=== PATIENT | female | born 1975 | race Caucasian/White ===

== ENCOUNTER 2018-07-20 00:20 | Outpatient (CLI) | payer OTHER, SELFPAY ==
--- NOTE | 2018-07-20 15:14 | DI.MAMMO_ITS ---
SYMPTOM/DIAGNOSIS: BREAST CA SCREENING, Z12.31 MAMMOGRAM: 07/20 Mammograms were interpreted according to the usual protocol including computer analysis with CAD system, tomosynthesis and C view imaging. The breasts are of moderate density with fairly symmetrical distribution of fibroglandular tissue. No dominant mass or lumped microcalcification is identified in either breast. The current examination is compared with previous examinations including 06/2016 and there has been no gross interval change in appearance in comparison with the previous studies. CONCLUSION: No specific evidence of malignancy at this time. Routine screening examinations are suggested at yearly intervals in this age group according to the ACS/ACR guidelines. Category 1, breast density category B. MQSA ASSESSMENT OF FINDINGS: Negative. Category 1. Patient will receive a letter notifying them of these results. BI-RADS category B. There are scattered areas of fibroglandular density.
== END 2018-07-20 00:40 ==
PROVIDERS: PCP Nurse Practitioner; Visit Provider Nurse Practitioner
DX: Z12.31 Encounter for screening mammogram for malignant neoplasm of breast (principal)
CPT/HCPCS: 77063; 77067

== ENCOUNTER 2018-09-01 18:32 | Outpatient (REF) | payer OTHER, SELFPAY ==
[2018-09-03 14:04] LABS: Chlamydia Result Negative; GC Result Negative; Specimen Description URINE
== END 2018-09-01 18:52 ==
LOC: NCHCN 18:32
PROVIDERS: PCP Nurse Practitioner; Visit Provider Nurse Practitioner
DX: R10.9 Unspecified abdominal pain (principal)
CPT/HCPCS: 87491; 87591; 87086

== ENCOUNTER 2018-09-11 07:52 | Outpatient (CLI) | payer OTHER, SELFPAY ==
[2018-09-11 08:31] LABS: Abs Immature Grans 0.01 k/cumm (0.0-0.09); Absolute Basophil Count 0.08 k/cumm (0.0-0.2); Absolute Lymphocyte Count 2.34 k/cumm (1.2-3.4); Absolute Monocyte Count 0.41 k/cumm (0.11-0.7); Absolute Neutrophil Count 4.53 k/cumm (1.2-6.7); Eosinophils % 6.4; HCT 43.7 % (36.0-46.0); HGB 14.1 g/dL (12.0-15.5); Immature Grans % 0.1; Lymphocytes % 29.7; Mean Corp. HGB Concentration 32.3 g/dL (32.0-36.0); Mean Corpuscular Hemoglobin 28.4 pg (27.0-33.0); Mean Corpuscular Volume 87.9 fL (80-95); Mean Platelet Volume 10.3 fL (8.0-11.0); Monocytes % 5.2; Neutrophils % 57.6; Platelet Count 262 x1000/uL (130-400); RBC 4.97 m/cumm (4.00-5.20); RBC Distribution Width 13.6 % (11.7-14.6); White Blood Cell Count 7.87 k/cumm (4.4-10.8)
[2018-09-11 09:05] LABS: ALT 24 U/L (12-78); AST 14 U/L (15-37); Albumin 3.3 g/dL (3.4-5.0); Alkaline Phosphatase 61 U/L (46-116); Anion Gap 7.6 mmol/L (3-11); BUN 21 mg/dL (7-18); Bilirubin, Total 0.4 mg/dL (0.2-1.0); CO2 29.4 mmol/L (21.0-32.0); CREATININE 1.03 mg/dL (0.55-1.02); Chloride 102 mmol/L (98-107); Cholesterol 171 mg/dL (50-200); Estimated GFR 58.21 (mL/min/1.73m2); Glucose 130 mg/dL (70-100); HDL Cholesterol 59 mg/dL (40-60); LDL CHOLESTEROL 104 mg/dL (<100); Potassium 3.9 mmol/L (3.5-5.1); Sodium 139 mmol/L (136-145); Total Protein 7.2 g/dL (6.4-8.2); Triglyceride 48 mg/dL (30-150)
== END 2018-09-11 08:12 ==
PROVIDERS: PCP Nurse Practitioner; Visit Provider Nurse Practitioner
DX: I10 Essential (primary) hypertension (principal); R10.9 Unspecified abdominal pain
CPT/HCPCS: 36415; 80053; 80061; 83721; 85025

== ENCOUNTER 2019-02-27 09:08 | Outpatient (CLI) | payer SELFPAY ==
[2019-02-27 10:39] LABS: Glucose 103 mg/dL (70-100)
== END 2019-02-27 09:28 ==
PROVIDERS: PCP Nurse Practitioner; Visit Provider Nurse Practitioner
DX: R73.09 Other abnormal glucose (principal)
CPT/HCPCS: 36415; 82947

== ENCOUNTER 2019-05-31 04:25 | Emergency (ER) | payer OTHER, SELFPAY ==
[2019-05-31 04:30] VITALS: BP 155/95; PULSE 80; RESP 20; TEMP 36.8; O2SAT 98
--- NOTE | 2019-05-31 04:42 | W.ED.GENAD ---
Discharge Plan Disposition Patient Disposition: HOME Condition: Stable Discharge Details Chief Complaint: Nk/Back Pain Clinical Impression: Lumbago Primary Care Provider: Rachel Vail ED Provider: Elmer Mari Home Meds and New Rx's Prescriptions: New prednisone 50 mg tablet 50 mg PO DAILY 5 Days Qty: 5 RF: 0 Continued lisinopril 10 mg tablet 5 mg PO DAILY Qty: 90 RF: 3 albuterol sulfate 90 mcg/actuation HFA aerosol inhaler 2 puff IH QID PRN (Reason: shortness of breath or wheezing) Qty: 1 RF: 0 multivitamin tablet 1 tab PO DAILY RF: 0 Discharge Instructions Instructions: Low Back Strain (ED) Additional Instructions: Please follow-up with physical therapy as planned and prescribed. Ibuprofen 800 mg every 8 hours and/or Tylenol 650 mg every 6 hours for pain. Apply ice to area to reduce discomfort. Please follow-up with physical therapy. Return for worsening pain, development of weakness, change to ability to urinate, or any other concerns per Stand Alone Forms: Physical Therapy Referral, Work Release Medical Decision Making 44-year-old female who was bent over changing hoses at work when she felt the abrupt onset of lumbar pain that radiated down her right leg. Pain improved with some positioning but has persisted. She did not injure herself in any other way. She arrives with mild hypertension, a normal exam without evidence of deficit. I do feel she likely has a bulging lumbar disc versus muscular strain. Will treat with Lidoderm patch, burst of steroid, NSAIDs and a referral to physical therapy. She is understanding of the plan and need for follow-up with physical therapy. She is stable for outpatient management. HPI General Mode of arrival: ambulatory. Date/Time Provider Initiated Documentation: 05/31/19 04:34. Limitations to Documentation: no limitations. Information obtained by: patient. History of Present Illness 44 year old F presents to the emergency department with the chief complaint of Low back pain, described as moderate, Quality is described as dull and constant, and is localized to the back. Patient extremity. Patient started experiencing this minute(s) and it has been other (Improving). No relieving factors improve symptom(s), Movement worsens symptoms . Patient notes no other symptoms.; denies weakness. Patient did receive the following treatments prior to arrival, none Related Data Home Medications Medication Instructions Recorded Confirmed albuterol sulfate 90 mcg/actuation 2 puff IH QID PRN #1 device 09/23/18 03/20/19 aerosol inhaler multivitamin 1 tab PO DAILY 03/19/19 05/31/19 lisinopril 10 mg tablet 5 mg PO DAILY #90 tab-cap 04/26/19 05/31/19 prednisone 50 mg PO DAILY 5 Days #5 tab 05/31/19 Previous Rx's Medication Instructions Recorded albuterol sulfate 90 mcg/actuation 2 puff IH QID PRN #1 device 09/23/18 aerosol inhaler lisinopril 10 mg tablet 5 mg PO DAILY #90 tab-cap 04/26/19 prednisone 50 mg PO DAILY 5 Days #5 tab 05/31/19 Allergies Allergy/AdvReac Type Severity Reaction Status Date / Time No Known Allergies Allergy Verified 05/31/19 04:33 General Stated Complaint: Nk/Back Pain NISHANT: 3 Review of Systems Review of Systems No change to ability to urinate, no motor weakness. No numbness. No fall or other injury. 6 systems reviewed and otherwise - [facility] Medical History Essential hypertension Gastroesophageal reflux disease Polycystic ovaries Surgical History Cholecystectomy Diagnostic Laproscopy Hysteroscopy Family History Mother No problems noted. Father No problems noted. Sister No problems noted. Sister No problems noted. Social History Smoking/Tobacco Use Status: Never Alcohol Intake: current Alcohol Intake frequency: holidays/special occasions only Drug use: Never Household members: other Details: alicia' Number of Children: 0 current occupation: [employer] What type of physical activity do you participate in: regular exercise and other Details: work-lifting, up and down stairs Duration: 60-90 minutes/day Frequency: 5-6 times per week Do you feel safe in your relationship?: Yes Exam Narrative Exam Narrative: GEN: awake, alert, oriented 3. Pleasant, well groomed, interactive. HEAD: Normocephalic, atraumatic ENT: Mucous membranes moist, oropharynx unremarkable, External ear exam unremarkable EYES: PERRL, EOMI NECK: Full ROM, no SERVANDO, no menigismus CHEST/RESP: Nontender, clear to auscultation bilateral, no wheeze/rhonchi/rales CARDIOVASCULAR: RRR, no murmur, rub paulina. 2+ Rad pulse bilateral ABDOMEN: Soft, nontender, no mass. +Bowel sounds. The back is tender to palpation in the lumbar region. No sciatic notch tenderness per EXT: Full ROM, no edema, no rash. Motor rated 5 out of 5. Sensation intact throughout including saddle distribution. Patient able to walk with narrow-base gait Neuro: Grossly normal neurologic exam, conversant, interactive. Psych: Speech fluent, thoughts congruent, affect normal Course Vital Signs Temperature 36.8 C 05/31/19 04:30 Pulse 80 05/31/19 04:30 Respiratory Rate 20 05/31/19 04:30 Blood Pressure 155/95 H 05/31/19 04:30 Pulse Oximetry 98 05/31/19 04:30 Temperature 36.8 C 05/31/19 04:30 Temperature Source Temporal Artery Scan 05/31/19 04:30 Pulse 80 05/31/19 04:30 Respiratory Rate 20 05/31/19 04:30 Respiratory Effort Non-Labored 05/31/19 04:30 Blood Pressure 155/95 H 05/31/19 04:30 Pulse Oximetry 98 05/31/19 04:30 Oxygen Delivery Method Room Air 05/31/19 04:30 Oxygen Flow Rate 0 05/31/19 04:30 Pain Level 10 05/31/19 04:30
[2019-05-31] MEDS: Ibuprofen 800 MG TAB PO (04:55)
[2019-05-31] MEDS: predniSONE 20 MG TAB 60 MG PO (04:56)
[2019-05-31] MEDS: Lidocaine 5% Patch 1 PATCH TP (04:56)
== END 2019-05-31 04:55 | disposition home or self-care (01) ==
PROVIDERS: Emergency Provider Emergency Medicine; PCP Nurse Practitioner
DX: M54.5 Low back pain (principal); I10 Essential (primary) hypertension
CPT/HCPCS: 99283; J7512

== ENCOUNTER 2019-06-03 10:10 | Outpatient (CLI) | payer OTHER, SELFPAY ==
[2019-06-03 11:22] LABS: Hemoglobin A1C 6.1 % (4.5-6.2)
[2019-06-03 12:07] LABS: ALT 42 U/L (12-78); AST 23 U/L (15-37); Albumin 3.5 g/dL (3.4-5.0); Alkaline Phosphatase 59 U/L (46-116); Anion Gap 9.3 mmol/L (3-11); BUN 25 mg/dL (7-18); Bilirubin, Total 0.2 mg/dL (0.2-1.0); CO2 25.7 mmol/L (21.0-32.0); CREATININE 1.02 mg/dL (0.55-1.02); Calcium 8.9 mg/dL (8.5-10.1); Calculated LDL 97 mg/dL; Chloride 103 mmol/L (98-107); Cholesterol 177 mg/dL (50-200); Glucose 190 mg/dL (70-100); HDL Cholesterol 74 mg/dL (40-60); Potassium 4.4 mmol/L (3.5-5.1); Sodium 138 mmol/L (136-145); Total Protein 7.4 g/dL (6.4-8.2); Triglyceride 32 mg/dL (30-150)
== END 2019-06-03 10:30 ==
PROVIDERS: PCP Nurse Practitioner; Visit Provider Nurse Practitioner
DX: I10 Essential (primary) hypertension (principal); R73.01 Impaired fasting glucose; R73.03 Prediabetes
CPT/HCPCS: 36415; 80053; 80061; 83721; 83036

== ENCOUNTER 2020-04-27 01:26 | Outpatient (CLI) | payer OTHER, SELFPAY ==
[2020-04-27 12:28] LABS: HCT 40.4 % (36.0-46.0); HGB 13.2 g/dL (12.0-15.5); Mean Corp. HGB Concentration 32.7 g/dL (32.0-36.0); Mean Corpuscular Hemoglobin 28.4 pg (27.0-33.0); Mean Corpuscular Volume 87.1 fL (80-95); Mean Platelet Volume 10.2 fL (8.0-11.0); Platelet Count 262 x1000/uL (130-400); RBC 4.64 m/cumm (4.00-5.20); RBC Distribution Width 13.6 % (11.7-14.6); White Blood Cell Count 8.07 k/cumm (4.4-10.8)
[2020-04-27 13:33] LABS: ALT 29 U/L (14-59); AST 16 U/L (15-37); Albumin 3.7 g/dL (3.4-5.0); Alkaline Phosphatase 65 U/L (46-116); Anion Gap 9.1 mmol/L (3-11); BUN 14 mg/dL (7-18); Bilirubin, Total 0.6 mg/dL (0.2-1.0); CO2 25.9 mmol/L (21.0-32.0); Calcium 9.2 mg/dL (8.5-10.1); Calculated LDL 130 mg/dL (<100); Chloride 106 mmol/L (98-107); Cholesterol 203 mg/dL (<200); Estimated GFR 59.69 (mL/min/1.73m2); Glucose 94 mg/dL (74-106); HDL Cholesterol 66 mg/dL (40-60); Potassium 3.8 mmol/L (3.5-5.1); Sodium 141 mmol/L (136-145); TSH (W/Ref FT4) 1.69 uIU/mL (0.36-3.74); Total Protein 7.3 g/dL (6.4-8.2); Triglyceride 38 mg/dL (<150)
== END 2020-04-27 01:46 ==
PROVIDERS: PCP Nurse Practitioner; Visit Provider Nurse Practitioner
DX: I10 Essential (primary) hypertension (principal)
CPT/HCPCS: 36415; 80053; 80061; 85027; 84443

== ENCOUNTER 2020-06-01 19:15 | Emergency (ER) | payer OTHER, SELFPAY ==
[2020-06-01 19:19] VITALS: BP 150/95; PULSE 68; RESP 18; TEMP 37.2; O2SAT 97
--- NOTE | 2020-06-01 19:25 | ED.GENADUL_ITS ---
Discharge Plan Disposition Patient Disposition: HOME Condition: Stable Discharge Details Chief Complaint: Orthopedic Clinical Impression: Left wrist pain, Overuse injury Primary Care Provider: Rachel Vail ED Provider: Jasper Greene Home Meds and New Rx's Prescriptions: Continued lisinopril 10 mg tablet 10 mg PO DAILY Qty: 90 RF: 3 albuterol sulfate 90 mcg/actuation HFA aerosol inhaler 2 puff IH QID PRN (Reason: shortness of breath or wheezing) Qty: 1 RF: 0 multivitamin tablet 1 tab PO DAILY RF: 0 Discharge Instructions Additional Instructions: I suspect your pain is from overuse from lifting and using it frequently try not to lift heavy objects while having pain call orthopedics for an appointment or see your primary care provider in 1-2 weeks return to the emergency department for severe worsening pain, redness or fevers return to the emergency department use te splint as needed for comfort Medical Decision Making 45 yo female comes in with a week of ulnar sided wrist pain with no known injury, no falls or trauma. Denies fevers or redness. She has full rom of the wrist with no palpable or visible deformities with intact sensation and pulses and full rom of the hand. She does do a lot of heavy lifting at work and has pain with palpation along ulnar surface of the wrist, suspect tendonitis vs overuse injury.Given normal exam otherwise and no trauma do not feel xray indicated. Will d/c home in wrist splint, advised f/u with pcp or ortho, return precautions given Differential Diagnosis Differential Diagnosis: sprain, tendonytis, overuse HPI General Mode of arrival: ambulatory . Date/Time Provider Initiated Documentation: 06/01/20 19:15 . Limitations to Documentation: no limitations . Information obtained by: patient . History of Present Illness 45 year old F presents to the emergency department with the chief complaint of wrist pain, described as moderate, and it has been constant. No relieving factors improve symptom(s), No exacerbating factors reported . Related Data Home Medications Medication Instructions Recorded Confirmed albuterol sulfate 90 mcg/actuation 2 puff IH QID PRN #1 device 09/23/18 06/01/20 aerosol inhaler multivitamin 1 tab PO DAILY 03/19/19 06/01/20 lisinopril 10 mg tablet 10 mg PO DAILY #90 tab 04/25/20 06/01/20 Previous Rx's Medication Instructions Recorded albuterol sulfate 90 mcg/actuation 2 puff IH QID PRN #1 device 09/23/18 aerosol inhaler lisinopril 10 mg tablet 10 mg PO DAILY #90 tab 04/25/20 Allergies Allergy/AdvReac Type Severity Reaction Status Date / Time meloxicam AdvReac Mild Verified 04/25/20 14:33 General NISHANT: 3 Review of Systems All systems reviewed & are unremarkable except as noted in HPI and below Constitutional Constitutional: Denies chills, Denies fever(s) and Denies weakness Eyes Eyes: Denies loss of vision ENT Ears, Nose, Mouth, and Throat: Denies change in voice Cardiovascular Cardiovascular: Denies chest pain and Denies dyspnea Respiratory Respiratory: Denies cough and Denies dyspnea Gastrointestinal Gastrointestinal: Denies abdominal pain, Denies nausea and Denies vomiting Neurologic Neurologic: Denies loss of vision and Denies weakness Psychiatric Psychiatric: Denies depression [facility] Medical History (Updated 06/01/20 @ 19:26 by Jasper Greene MD) Essential hypertension Gastroesophageal reflux disease Polycystic ovaries Surgical History Cholecystectomy Diagnostic Laproscopy Hysteroscopy Family History Mother No problems noted. Father No problems noted. Sister No problems noted. Sister No problems noted. Social History Smoking/Tobacco Use Status: Never Alcohol Intake: current Alcohol Intake frequency: holidays/special occasions only Drug use: Never Substance use type: does not use Household members: other Details: alicia' Number of Children: 0 current occupation: [employer] What type of physical activity do you participate in: regular exercise and other Details: work-lifting, up and down stairs Duration: 60-90 minutes/day Frequency: 5-6 times per week Do you feel safe at home: Yes Do you feel safe in your relationship?: Yes Exam Const General: no acute distress Orientation: alert HENMT Head: normal to inspection Ears: external ears normal General nose exam: external nose normal Mouth: moist mucous membranes Eyes General: appearance normal, both eyes and all related structures Neck Neck: normal visual inspection Resp Effort & Inspection: normal respiratory effort and able to speak in complete sentences Cardio Rate: regular rate Skin General skin exam: no rashes or lesions noted Neuro General: patient alert and patient oriented x3 Extrem General: normal to inspection, full ROM and capillary refill normal Psych Mental Status: mental status grossly normal
== END 2020-06-01 19:30 | disposition home or self-care (01) ==
LOC: ER 19:32
PROVIDERS: Emergency Provider Emergency Medicine; PCP Nurse Practitioner
DX: M70.832 Other soft tissue disorders related to use, overuse and pressure, left forearm (principal); X50.3XXA Overexertion from repetitive movements, initial encounter; I10 Essential (primary) hypertension
CPT/HCPCS: 29125; 99283; L3807

== ENCOUNTER 2020-06-16 04:13 | Outpatient (CLI) | payer OTHER, SELFPAY ==
--- NOTE | 2020-06-16 09:18 | DI.RAD_ITS ---
EXAM: XR WRIST LT COMPLETE CLINICAL HISTORY: lt wrist pain, m25.532, ? bony abnormality TECHNIQUE: COMPARISON: No exams were available for comparison FINDINGS: Three views were obtained. Carpal alignment appears within normal limits. No bony or soft tissue ab normality seen. IMPRESSION: RADIATION DOSE DELIVERED: Total DLP
== END 2020-06-16 04:33 ==
PROVIDERS: PCP Nurse Practitioner; Visit Provider Nurse Practitioner Family
DX: M25.532 Pain in left wrist (principal)
CPT/HCPCS: 73110

== ENCOUNTER → 2020-11-15 13:55 | Outpatient (CLI) | payer OTHER, SELFPAY ==
--- NOTE | 2020-11-15 10:15 | DI.RAD_ITS ---
EXAM: XR SHOULDER LT COMPLETE 2+V CLINICAL HISTORY: Left shoulder pain. TECHNIQUE: 2D digital imaging was performed. COMPARISON: No exams were available for comparison FINDINGS: BONES: No acute fracture is present. No bony destructive lesion is seen. There is minimal spurring a t the greater and lesser tuberosities. No significant degenerative changes at the glenohumeral joint or AC joint. JOINTS: No dislocation present. SOFT TISSUE: Normal. IMPRESSION: Minimal degenerative changes. DATA REPOSITORY: RADIATION DOSE DELIVERED:
== END ==
PROVIDERS: PCP Nurse Practitioner; Referring Provider Nurse Practitioner; Visit Provider Student in an Organized Health Care Education/Training Program
DX: M19.012 Primary osteoarthritis, left shoulder (principal)
CPT/HCPCS: 73030

== ENCOUNTER 2021-05-11 04:14 | Outpatient (CLI) | payer OTHER, SELFPAY ==
[2021-05-11 14:58] LABS: Hemoglobin A1C 6.2 % (<5.7)
[2021-05-11 15:27] LABS: ALT 27 U/L (14-59); AST 17 U/L (15-37); Albumin 3.9 g/dL (3.4-5.0); Alkaline Phosphatase 57 U/L (46-116); Anion Gap 12.7 mmol/L (3-11); BUN 19 mg/dL (7-18); Bilirubin, Total 0.3 mg/dL (0.2-1.0); CO2 24.3 mmol/L (21.0-32.0); Calcium 9.2 mg/dL (8.5-10.1); Calculated LDL 99 mg/dL (<100); Chloride 106 mmol/L (98-107); Cholesterol 168 mg/dL (<200); Estimated GFR 59.43 (mL/min/1.73m2); Glucose 89 mg/dL (74-106); HDL Cholesterol 63 mg/dL (40-60); Potassium 3.7 mmol/L (3.5-5.1); Sodium 143 mmol/L (136-145); Total Protein 7.5 g/dL (6.4-8.2); Triglyceride 34 mg/dL (<150)
== END 2021-05-11 04:15 | disposition home or self-care (01) ==
LOC: LBO 04:15
PROVIDERS: PCP Nurse Practitioner; Visit Provider Nurse Practitioner
DX: R73.03 Prediabetes (principal); I10 Essential (primary) hypertension; E28.2 Polycystic ovarian syndrome
CPT/HCPCS: 36415; 80053; 80061; 83036

== ENCOUNTER 2022-08-23 11:16 | Emergency (ER) | payer BC, SELFPAY ==
[2022-08-23] VITALS (25 sets, daily range): BP systolic 119–145; BP diastolic 66–78; PULSE 73–90; RESP 16–18; TEMP 37.7; O2SAT 76–100
--- NOTE | 2022-08-23 11:26 | ED.GENADUL_ITS ---
Discharge Plan Disposition Patient Disposition: HOME Condition: Improving Discharge Details Clinical Impression: COVID-19 Primary Care Provider: Rachel Vail ED Provider: Lisa Macias Home Meds and New Rx's Prescriptions: Continued multivitamin tablet 1 tab PO DAILY albuterol sulfate 90 mcg/actuation HFA aerosol inhaler 2 puff IH QID PRN (Reason: shortness of breath or wheezing) Qty: 18 12RF Rx Instructions: Dispense brand best covered under insurance lisinopril 10 mg tablet 10 mg PO DAILY Qty: 90 0RF Discharge Instructions Instructions: COVID-19 (Coronavirus Disease 2019) (ED) Additional Instructions: You tested positive for the COVID-19 virus today. You are being sent home with the antiviral medication Paxlovid to decrease the risk of progression to severe illness or related to COVID-19. Take the paxlovid as directed until finished. Take the Zofran as needed and directed for nausea and vomiting. Drink plenty of fluids and get plenty of rest. Alternate tylenol and motrin as needed and directed for pain. Follow-up with your primary care doctor in 1 week. Return to the emergency department with any worsening or new concerning symptoms. Discharge Data Discharge Physician: Lisa Macias Medical Decision Making 47yo F who presents to the ED w/ a c/o of fatigue, bodyaches, ear pain, headache, vomiting and diarrhea since yesterday after receiving the flu and covid vaccine yesterday. Low-grade fever at 99.8 p.o. Remainder of vitals within normal limits. Patient appears generally fatigued but nontoxic. Bilateral ears erythematous and dull but slightly increased on the right side. Normal oropharynx. Lungs clear bilaterally. Abdomen soft nontender. No meningeal signs. Suspect reaction to flu or COVID-vaccine. Also consider influenza virus, COVID, electrolyte abnormality, PE. Will obtain screening labs including D-dimer, COVID swab and give fluids, IV Tylenol, IV Toradol, IV Zofran and reassess. Labs and imaging reviewed. Patient is COVID-positive. Her D-dimer is also elevated at 821. Will refer for CT chest. Patient reassessed and she overall feels better but still feels some headache and fatigue. She denies any nausea. CT chest negative for pneumonia and PE. Patient remains hemodynamically stable with oxygen saturation 96% on room air. Patient states she feels much better and would like to go home. Discussed with pharmacy and do not see any contraindications for paxlovid. Paxlovid was dispensed and she was given Zofran upon discharge. Advised to increase fluids and rest. Advised to follow up with the primary care doctor for re-evaluation. Usual and customary return precautions given prior to discharge. Medical Records Medical records reviewed: Yes I reviewed the patient's medical records. Imaging Data Radiologic Study: Radiologist's impression: CT CHEST PE CTA CLINICAL HISTORY: ? pleuritic pain, hypoxic, r/o PE/pneumonia. ? TECHNIQUE:? Imaging Protocol: CT angiography of the chest was performed using pulmonary embolus protocol.? Multi planar reconstructions were performed. CONTRAST MATERIAL:? Intravenous: Omnipaque 350 Contrast volume: 70 cc COMPARISON:? No exams were available for comparison FINDINGS: CHEST: PULMONARY ARTERIES: There are no intraluminal filling defects to suggest acute pulmonary emboli. LUNGS: There are no infiltrates nor evidence of pulmonary infarction.. There are no pleural effusions. MEDIASTINUM: There is no hilar nor mediastinal adenopathy.? CARDIAC: Heart size is upper normal.? There is no pericardial effusion.Caliber of the thoracic aorta is within normal limits.? There is no significant shift of the interventricular septum. PARTIALLY VISUALIZED UPPERMOST ABDOMEN: No obvious findings OSSEOUS: No significant osseous lesions.. IMPRESSION: 1. No evidence of acute pulmonary emboli.? No evidence of pulmonary infarction.No pleural effusions. 2. No significant intrathoracic findings. Lab Data Lab results reviewed: Yes I reviewed the patient's lab results. Labs: Laboratory Tests Range/Units 08/23/22 08/23/22 08/23/22 11:41 11:45 11:45 WBC (4.4-10.8) 10^3/uL 6.20 RBC (3.93-5.22) 10^6/uL 4.95 Hgb (11.2-15.7) g/dL 14.3 Hct (36.0-46.0) % 42.2 MCV (80-95) fL 85 MCH (27.0-33.0) pg 28.9 MCHC (32.0-36.0) % 33.9 RDW (11.7-14.6) % 12.8 Plt Count (130-400) 10^3/uL 231 MPV (8.0-11.0) fL 10.0 Immature Gran % 0.3 Neutrophils % 78.6 Lymphocytes % 5.8 Monocytes % 13.7 Eosinophils % 0.6 Basophils % 1.0 Nucleated RBC % (0.0-0.3) % 0.0 Absolute Neutrophils (1.2-6.7) 10^3/uL 4.87 Absolute Lymphocytes (1.2-3.4) 10^3/uL 0.36 L Absolute Monocytes (0.1-0.8) 10^3/uL 0.85 H Absolute Eosinophils (0.0-0.7) 10^3/uL 0.04 Absolute Basophils (0.0-0.2) 10^3/uL 0.06 D-Dimer (<500) ng/mlFEU Sodium (136-145) mmol/L 138 Potassium (3.5-5.1) mmol/L 3.6 Chloride (98-107) mmol/L 103 Carbon Dioxide (21.0-32.0) mmol/L 23.7 Anion Gap (3-11) mmol/L 11.3 H BUN (7-18) mg/dL 15 Creatinine (0.55-1.02) mg/dL 1.2 H Est GFR (CKD-EPI 2020) (mL/min/1.73m2) 55.84 Glucose (74-106) mg/dL 159 H Calcium (8.5-10.1) mg/dL 9.4 Total Bilirubin (0.2-1.0) mg/dL 0.4 AST (15-37) U/L 28 ALT (14-59) U/L 38 Alkaline Phosphatase (46-116) U/L 64 Total Protein (6.4-8.2) g/dL 8.4 H Albumin (3.4-5.0) g/dL 3.7 COVID-19 Source Cancelled SARS-CoV-2 (PCR) Cancelled Influenza Type A (PCR) (Negative) Influenza Type B (PCR) (Negative) RSV (PCR) (Negative) Range/Units 08/23/22 08/23/22 11:45 11:49 WBC (4.4-10.8) 10^3/uL RBC (3.93-5.22) 10^6/uL Hgb (11.2-15.7) g/dL Hct (36.0-46.0) % MCV (80-95) fL MCH (27.0-33.0) pg MCHC (32.0-36.0) % RDW (11.7-14.6) % Plt Count (130-400) 10^3/uL MPV (8.0-11.0) fL Immature Gran % Neutrophils % Lymphocytes % Monocytes % Eosinophils % Basophils % Nucleated RBC % (0.0-0.3) % Absolute Neutrophils (1.2-6.7) 10^3/uL Absolute Lymphocytes (1.2-3.4) 10^3/uL Absolute Monocytes (0.1-0.8) 10^3/uL Absolute Eosinophils (0.0-0.7) 10^3/uL Absolute Basophils (0.0-0.2) 10^3/uL D-Dimer (<500) ng/mlFEU 821 H Sodium (136-145) mmol/L Potassium (3.5-5.1) mmol/L Chloride (98-107) mmol/L Carbon Dioxide (21.0-32.0) mmol/L Anion Gap (3-11) mmol/L BUN (7-18) mg/dL Creatinine (0.55-1.02) mg/dL Est GFR (CKD-EPI 2020) (mL/min/1.73m2) Glucose (74-106) mg/dL Calcium (8.5-10.1) mg/dL Total Bilirubin (0.2-1.0) mg/dL AST (15-37) U/L ALT (14-59) U/L Alkaline Phosphatase (46-116) U/L Total Protein (6.4-8.2) g/dL Albumin (3.4-5.0) g/dL COVID-19 Source Nasopharynx SARS-CoV-2 (PCR) Positive A Influenza Type A (PCR) (Negative) Negative Influenza Type B (PCR) (Negative) Negative RSV (PCR) (Negative) Negative HPI General Mode of arrival: ambulatory . Date/Time Provider Initiated Documentation: 08/23/22 11:16 . Limitations to Documentation: no limitations . Information obtained by: patient . HPI Narrative: Pt is a 47yo F who presents to the ED w/ a c/o fatigue, body aches, headache, ear pain, vomiting and diarrhea since yesterday after receiving a flu andCOVID- vaccine. Patient denies any known fever. She states both of her ears hurt but has more pain in her right ear. She has vomited approximately 6 times which are mainly been bile. She states she has had loose brown stools. She also admits to diffuse headache, pain with deep breath but denies any sore throat, significant cough or significant shortness of breath. She last took Tylenol and ibuprofen at 12:30 AM this morning. She denies any urinary symptoms, recent antibiotics or recent travel. Related Data Home Medications Medication Instructions Recorded Confirmed multivitamin 1 tab PO DAILY 03/19/19 08/23/22 albuterol sulfate 90 mcg/actuation 2 puff inhalation QID PRN 10/23/20 08/23/22 aerosol inhaler shortness of breath or wheezing #18 grams lisinopril 10 mg tablet 10 mg PO DAILY #90 tabs 05/27/22 08/23/22 Previous Rx's Medication Instructions Recorded albuterol sulfate 90 mcg/actuation 2 puff inhalation QID PRN 10/23/20 aerosol inhaler shortness of breath or wheezing #18 grams lisinopril 10 mg tablet 10 mg PO DAILY #90 tabs 05/27/22 Allergies Allergy/AdvReac Type Severity Reaction Status Date / Time meloxicam AdvReac Mild Verified 08/23/22 11:28 General NISHANT: 5 Review of Systems All systems reviewed & are unremarkable except as noted in HPI and below Constitutional Constitutional: Reports as per HPI, Denies chills and Denies fever(s) Eyes Eyes: Denies blurry vision ENT Ears, Nose, Mouth, and Throat: Denies dizziness, Reports otalgia, Denies sore throat and Denies throat swelling Cardiovascular Cardiovascular: Denies chest pain and Denies dyspnea Respiratory Respiratory: Denies cough and Denies dyspnea Gastrointestinal Gastrointestinal: Denies abdominal pain, Reports diarrhea, Reports nausea and Reports vomiting Genitourinary Genitourinary: Denies hematuria and Denies dysuria Musculoskeletal Musculoskeletal: Denies back pain and Denies numbness Integumentary/Breasts Skin/Breast: Denies lesions and Denies rash Neurologic Neurologic: Denies dizziness, Denies localized weakness and Denies numbness Allergic/Immunologic Allergic/Immunologic: Denies throat swelling PFSH All Active Problems (Updated 08/23/22 @ 14:11 by Lisa Macias DO) COVID-19 (Acute) Tendonitis of left rotator cuff (Acute) Biceps tendinitis of left shoulder (Acute) Subacromial impingement of left shoulder (Acute) Bursitis of left shoulder (Acute) Left shoulder pain (Acute) Plantar fasciitis of right foot (Acute) Plantar fasciitis of left foot (Acute) Acute lumbar back pain (Acute) >50% of 40 min visit spent providing [id number] counseling. Pre-diabetes (Chronic) PCOS (polycystic ovarian syndrome) (Acute 12/09/14) on glucophage 850mg BID Migraine headache without aura (Acute 12/09/14) Takes ibuprofen, and then Maxalt prn Hypertension (Acute 12/09/14) on methyldopa 500mg BID Complex endometrial hyperplasia (Acute 12/09/14) Hemorrhoids (Acute 08/14/17) Carpal tunnel syndrome of right wrist (Acute 12/24/16) Medical History (Updated 08/23/22 @ 14:11 by Lisa Macias DO) Essential hypertension Gastroesophageal reflux disease Polycystic ovaries Surgical History Cholecystectomy Diagnostic Laproscopy Hysteroscopy Family History Mother No problems noted. Father No problems noted. Sister No problems noted. Sister No problems noted. Social History Smoking/Tobacco Use Status: Never Smoking risk assessment performed?: Yes Alcohol Intake: former Drug use: Never Substance use type: does not use Household members: other Details: alicia' Number of Children: 0 current occupation: [employer] What type of physical activity do you participate in: regular exercise and other Details: work-lifting, up and down stairs Duration: 60-90 minutes/day Frequency: 5-6 times per week Do you feel safe at home: Yes Do you feel safe in your relationship?: Yes Exam Const General: cooperative, healthy appearing and no acute distress Orientation: alert, awake and oriented x3 HENMT Head: normal to inspection Ears: hearing grossly normal bilaterally, external ears normal and TM abnormal dull bilaterally and erythematous bilaterally Face and sinus: normal facial exam Mouth: oral mucosae normal Throat: posterior oropharynx normal Eyes General: appearance normal, both eyes and all related structures Pupils: PERRL EOM: EOM intact bilaterally Neck Neck: normal visual inspection and No submandibular swelling Lymphatic: no lymphadenopathy noted Chest Chest: normal inspection of the chest and no tenderness Resp Effort & Inspection: normal respiratory effort and able to speak in complete sentences Auscultation: clear to auscultation bilaterally Cardio Rate: regular rate Rhythm: regular rhythm GI Inspection: normal to inspection Palpation: soft, not firm, not rigid and nontender Auscultation: hypoactive bowel sounds Back/Spine/Pelvis Thoracic/Lumbar Spine: thoracic and lumbar spine normal to inspection Pelvis: no pain with anterior-posterior compression Skin General skin exam: no rashes or lesions noted Neuro General: patient alert, patient awake and patient oriented x3 Cognition: normal cognition Speech: speech normal Motor: muscle tone normal throughout Sensory Exam: no sensory deficits noted Extrem General: normal to inspection, full ROM, capillary refill normal, no calf tenderness bilaterally and no edema Psych Appearance: grossly normal Mental Status: mental status grossly normal Speech and Movement: speech and movement normal Affect: normal affect
[2022-08-23] MEDS: Ondansetron 4 MG/2 ML VIAL IVP (11:52)
[2022-08-23] MEDS: ACETAMINOPHEN 1,000 MG/100 ML BTL 400 MG IVPB (11:52)
[2022-08-23] MEDS: Normal Saline 1,000 ML 1000 ML IV ×2 (11:53→13:56)
[2022-08-23] MEDS: Ketorolac 30 MG/ML VIAL IVP (11:53)
[2022-08-23 12:04] LABS: Abs Immature Grans 0.02 10^3/uL (0.0-0.06); Absolute Basophil Count 0.06 10^3/uL (0.0-0.2); Absolute Eosinophil Count 0.04 10^3/uL (0.0-0.7); Absolute Lymphocyte Count 0.36 10^3/uL (1.2-3.4); Absolute Monocyte Count 0.85 10^3/uL (0.1-0.8); Absolute Neutrophil Count 4.87 10^3/uL (1.2-6.7); Eosinophils % 0.6; HCT 42.2 % (36.0-46.0); HGB 14.3 g/dL (11.2-15.7); Immature Grans % 0.3; Lymphocytes % 5.8; MCH 28.9 pg (27.0-33.0); MCHC 33.9 % (32.0-36.0); MCV 85 fL (80-95); Monocytes % 13.7; Neutrophils % 78.6; Platelet Count 231 10^3/uL (130-400); RBC 4.95 10^6/uL (3.93-5.22); RDW 12.8 % (11.7-14.6); RDW-SD 39.9 fL
[2022-08-23 12:16] LABS: ALT 38 U/L (14-59); AST 28 U/L (15-37); Albumin 3.7 g/dL (3.4-5.0); Alkaline Phosphatase 64 U/L (46-116); Anion Gap 11.3 mmol/L (3-11); BUN 15 mg/dL (7-18); Bilirubin, Total 0.4 mg/dL (0.2-1.0); CO2 23.7 mmol/L (21.0-32.0); CREATININE 1.2 mg/dL (0.55-1.02); Calcium 9.4 mg/dL (8.5-10.1); Chloride 103 mmol/L (98-107); Estimated GFR 55.84 (mL/min/1.73m2); Glucose 159 mg/dL (74-106); Potassium 3.6 mmol/L (3.5-5.1); Sodium 138 mmol/L (136-145); Total Protein 8.4 g/dL (6.4-8.2)
[2022-08-23 12:26] LABS: D-Dimer 821 ng/mlFEU (<500)
[2022-08-23 12:34] LABS: Influenza A PCR Negative (Negative); Influenza B PCR Negative (Negative); RSV PCR Negative (Negative)
[2022-08-23 12:36] LABS: Source Nasopharynx
[2022-08-23 12:37] LABS: COVID-19 PCR Positive (Negative)
[2022-08-23] MEDS: Omnipaque 350 MG/ML 100 ML BTL 70 ML IJ (13:46)
--- NOTE | 2022-08-23 13:49 | DI.CT_ITS ---
Exam(s) CT CHEST PE CTA EXAM: CT CHEST PE CTA CLINICAL HISTORY: pleuritic pain, hypoxic, r/o PE/pneumonia. TECHNIQUE: Imaging Protocol: CT angiography of the chest was performed using pulmonary embolus raul col. Multi planar reconstructions were performed. CONTRAST MATERIAL: Intravenous: Omnipaque 350 Contrast volume: 70 cc COMPARISON: No exams were available for comparison FINDINGS: CHEST: PULMONARY ARTERIES: There are no intraluminal filling defects to suggest acute pulmonary emboli. LUNGS: There are no infiltrates nor evidence of pulmonary infarction.. There are no pleural effusions . MEDIASTINUM: There is no hilar nor mediastinal adenopathy. CARDIAC: Heart size is upper normal. There is no pericardial effusion.Caliber of the thoracic aorta is within normal limits. There is no significant shift of the interventricular septum. PARTIALLY VISUALIZED UPPERMOST ABDOMEN: No obvious findings OSSEOUS: No significant osseous lesions.. IMPRESSION: 1. No evidence of acute pulmonary emboli. No evidence of pulmonary infarction.No pleural effusions. 2. No significant intrathoracic findings. RADIATION DOSE DELIVERED: 399.37mGy.cm Total DLP DATA REPOSITORY: All CT scans at this facility are submitted to the National Radiology Data Registry (NRDR) Dose Index Registry (DIR) with the [employer] (A[employer]). RADIATION OPTIMIZATION: All CT scans at this facility use at least one of these dose optimization te chniques: automated exposure control; mA and/or kV adjustment per patient size (includes targeted exa ms where dose is matched to clinical indication); or iterative reconstruction.
[2022-08-23] MEDS: Ondansetron O.D.T. 4 MG TABEF, 3 TABS/BTL PO (14:29)
== END 2022-08-23 14:48 | disposition home or self-care (01) ==
PROVIDERS: Emergency Provider Physician Assistant; PCP Nurse Practitioner
DX: U07.1 COVID-19 (principal); I10 Essential (primary) hypertension; R07.81 Pleurodynia; R79.1 Abnormal coagulation profile
CPT/HCPCS: 36415; 71275; 80053; 81025; 87635; 87637; 96361; 96374; 96375; 99285; 85025; 85379; 99284; J0131; J1885; J2405; J3490

== ENCOUNTER → 2022-10-17 01:24 | Outpatient (CLI) | payer BC, SELFPAY ==
--- NOTE | 2022-10-17 15:57 | DI.MAMMO_ITS ---
Exam(s) MAMMO SCREENING EXAM: MAMMO SCREENING CLINICAL HISTORY: screening,z12.39. TECHNIQUE: Bilateral full field digital CC and MLO mammographic images were obtained with 3D tomosyn thesis and utilizing computer aided detection (CAD). COMPARISON: Prior mammograms were reviewed. FINDINGS: There has been no significant change in the appearance and distribution of the fibroglandular tissue. There are no CAD designations. There are no new spiculated masses nor malignant appearing microcalcification groups. There is no significant architectural distortion nor skin thickening-retraction. IMPRESSION: No radiographic evidence of malignancy. BI-RADS Category 1 - Negative Breast Density - Category B - Scattered areas of fibroglandular density Breast density Category C or D implies that the patient has dense breast tissue. Dense breast tissue can make it harder to find cancer on a mammogram. Dense breast tissue is also associated with an incr eased risk of breast cancer. This information about the result of the mammogram report was provided to the patient to raise their awareness. Use this report when you speak with the patient about their risks for breast cancer, which includes their family history. At that time, you may recommend additional screening tests (Ultrasoun d or MRI) as these tests may add significant information. A negative radiographic report should not delay biopsy if a dominant or clinically suspicious mass is present. Up to ten percent of cancers are not identified on mammography. A negative report may reinforce clinical impression. Adenosis and dense breasts may obscure an underlying neoplasm. False positive reports average 6 to 10%. Patient will receive a letter notifying them of these results.
== END ==
PROVIDERS: PCP Nurse Practitioner; Visit Provider Nurse Practitioner
DX: Z12.31 Encounter for screening mammogram for malignant neoplasm of breast (principal)
CPT/HCPCS: 77063; 77067

== ENCOUNTER 2022-12-26 18:13 | Outpatient (REF) | payer BC, SELFPAY ==
--- NOTE | 2022-12-26 15:30 | PAPFT_PTH ---
PATIENT: Nichole Pagan LOC: [facility] U#:[id number] AGE/SX: 47/F ROOM: RE12/26/[address]: Rachel Vail APRN : 1975 BED: DIS: 12/26/2022 SPEC #: [id number] RECD: 12/26/22 18:37 STATUS: [place] #: [id number] JESÚS: 12/26/22 15:[address]: Rachel Vail DEPT: [facility] Cytology RECD BY: Claire Pardo Tissues: 1 - CX/ENDOCX FOR PAP SMEARS Procedures: PAP THIN PREP/UVM Screening HPV DNA PROBE Comments: [id number]
== END 2022-12-26 18:14 | disposition home or self-care (01) ==
LOC: LBN 18:13
PROVIDERS: PCP Nurse Practitioner; Visit Provider Nurse Practitioner
DX: Z12.4 Encounter for screening for malignant neoplasm of cervix (principal); Z11.51 Encounter for screening for human papillomavirus (HPV)
CPT/HCPCS: 88142; 87624

== ENCOUNTER 2023-06-02 18:02 | Outpatient (REF) | payer BC, SELFPAY | END 2023-06-02 18:03 | disposition home or self-care (01) | LOC: LBN 18:02 | PROVIDERS: PCP Nurse Practitioner; Referring Provider Nurse Practitioner; Visit Provider Nurse Practitioner | DX: R31.9 Hematuria, unspecified (principal); R10.9 Unspecified abdominal pain | CPT/HCPCS: 87077; 87086; 87186 ==

== ENCOUNTER 2023-07-20 10:33 | Emergency (ER) | payer BC, SELFPAY ==
[2023-07-20 10:46] VITALS: BP 170/140; PULSE 95; RESP 20; TEMP 37; O2SAT 98
--- NOTE | 2023-07-20 10:49 | ED.GENADUL_ITS ---
Discharge Plan Disposition Patient Disposition: Home Discharge Details Clinical Impression: Viral URI, COVID-19 Primary Care Provider: Rachel Vail ED Provider: Pj Carty Home Meds and New Rx's Prescriptions: New ondansetron 4 mg tablet,disintegrating 4 mg PO BID 5 Days Qty: 10 0RF Continued albuterol sulfate 90 mcg/actuation HFA aerosol inhaler 2 puff IH QID PRN (Reason: shortness of breath or wheezing) Qty: 18 12RF Rx Instructions: Dispense brand best covered under insurance multivitamin tablet 1 tab PO DAILY bisacodyl [Dulcolax (bisacodyl)] 5 mg tablet,delayed release (DR/EC) 5 mg PO ONCE Qty: 4 0RF Rx Instructions: Colonoscopy Bowel Prep- Per Instructions polyethylene glycol 3350 17 gram/dose powder 238 g PO ONCE Qty: 238 0RF Rx Instructions: Colonoscopy Bowel Prep- Per Instructions lisinopril 10 mg tablet 10 mg PO DAILY Qty: 90 0RF Discharge Instructions Instructions: Upper Respiratory Infection (ED) Additional Instructions: Patient department for ER body aches. You likely have a viral infection for which you should take acetaminophen as noted below. You will receive a call if your COVID swab or influenza swab returned positive. Please return to the emergency department as discussed if you do not urinate at least once every 8 hours while you are awake. A prescription for nausea medicines has been sent to your pharmacy. Discharge Data Discharge Date/Time-TO BE ENTERED AT DEPARTURE: 07/20/23 11:27 HPI General Date/Time Provider Initiated Documentation: 07/20/23 10:45 . HPI Narrative: HPI This is a 48-year-old female with a history of hypertension on outpatient lisinopril arriving to the emergency department via private vehicle in the setting of cough chills body aches nausea dry heaving since yesterday. 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 She took some NyQuil last night and was able to get some sleep. She is vaccinated against COVID. She has not taken a COVID swab. She did have several sips of water at which she was able to tolerate this morning but otherwise whenever she tries to eat or drink she vomits. She denies any sick contacts. She did have a sore throat yesterday but this is improving. She has not taken her lisinopril yet this morning. She denies routine tobacco, ethanol, and illicits. She has not taken any falls. She denies chest pain shortness of breath. She did not measure a fever but felt that she was sweating and had some cold chills. Exam General: Well-appearing in no acute distress speaking in complete sentences. Head: Normocephalic, atraumatic. Eye: [Pupils equal, round reactive to light.] Extraocular eye movements intact. No conjunctival injection. No scleral icterus. Ear, nose, mouth, throat: Grossly normal inspection. Normal voice, handling secretions normally. No significant posterior oropharynx erythema. Uvula midline. Moist mucous membranes. Neck: Trachea midline. Good range of motion in neck. Patient resting under Street in no acute distress. Cardiovascular: Well-perfused distal extremities. Regular rate and rhythm. Respiratory: Nonlabored respiration. Clear lungs bilaterally. Gastrointestinal: Nondistended abdomen. Musculoskeletal: No edema. Moving all 4 extremities spontaneously. Skin: Normal for age and race, grossly normal temperature and turgor. No acute rash. Neurologic: Alert and appropriate, no apparent acute deficits. Psychiatric: Mood and manner are appropriate. Grooming and personal hygiene are appropriate. MDM This is an overall very well-appearing normothermic and not tachycardic 48-year-old female with general malaise body aches and nausea concerning for viral etiology. She has had a cough but is nontoxic-appearing and my suspicion is low for bacterial tracheitis. No significant posterior oropharynx erythema and based on age doubt strep so I did not send a swab. Uvula midline so doubt peritonsillar abscess. No chest pain so doubt pericarditis. No recent tick bites so doubt Lyme carditis. Good range of motion in neck so doubt retropharyngeal abscess. Handling secretions so doubt epiglottitis. No chest pain nor shortness of breath so doubt PE and patient is PERC negative. Her vitals are significant for hypertension and she reports that she has not taken her lisinopril this morning. I offered to observe the patient in the ED and await for the results of her viral swab but she wanted to go home to rest. Given moist mucous membranes no indication for IV hydration. Given limited emesis my suspicion for acute electrolyte abnormalities is exceedingly low so I did not feel that the patient required laboratory evaluation. I treated her with ondansetron and acetaminophen as she had not yet taken any medications. We will call if her COVID test returns positive. Even if the patient has COVID she is vaccinated and not hypoxic so no indication for dexamethasone nor hospitalization. Otherwise I advised ED return if she did not urinate at least once every 8 hours while awake or if she could not tolerate p.o. as result of nausea or vomiting. We will proceed with empiric trial of expectant outpatient management. I wrote her for a prescription of ondansetron. 11:50 AM Patient's flu and COVID swab returned positive. I tried to call the patient at home however she did not answer so I left her a voicemail advising her to continue scheduled acetaminophen and return to the emergency department if she developed worsening shortness of breath. I also discussed quarantining at home for 5 days until her symptoms improved or she had a negative home COVID test. Chronic conditions affecting the care of the patient: Prediabetes & hypertension History obtained from an outside historian: Patient External record review: [facility] [place] showing hypertension Medications: Acetaminophen Social determinants of health affecting disposition: N/A Management discussed with: N/A Treatment/interventions considered: N/A Response to therapies provided: N/A Related Data Home Medications Medication Instructions Recorded Confirmed multivitamin 1 tab PO DAILY 03/19/19 07/08/23 albuterol sulfate 90 mcg/actuation 2 puff inhalation QID PRN 10/15/22 07/08/23 aerosol inhaler shortness of breath or wheezing #18 grams lisinopril 10 mg tablet 10 mg PO DAILY #90 tabs 04/23/23 07/08/23 bisacodyl 5 mg tablet,delayed 5 mg PO ONCE Colonoscopy Bowel 07/08/23 07/08/23 release (Dulcolax (bisacodyl)) Prep #4 tabs polyethylene glycol 3350 17 238 g PO ONCE Colonoscopy Bowel 07/08/23 07/08/23 gram/dose oral powder Prep #238 grams ondansetron 4 mg disintegrating 4 mg PO BID 5 days #10 tabs 07/20/23 tablet Previous Rx's Medication Instructions Recorded albuterol sulfate 90 mcg/actuation 2 puff inhalation QID PRN 10/15/22 aerosol inhaler shortness of breath or wheezing #18 grams lisinopril 10 mg tablet 10 mg PO DAILY #90 tabs 04/23/23 bisacodyl 5 mg tablet,delayed 5 mg PO ONCE Colonoscopy Bowel 07/08/23 release (Dulcolax (bisacodyl)) Prep #4 tabs polyethylene glycol 3350 17 238 g PO ONCE Colonoscopy Bowel 07/08/23 gram/dose oral powder Prep #238 grams ondansetron 4 mg disintegrating 4 mg PO BID 5 days #10 tabs 07/20/23 tablet Allergies Allergy/AdvReac Type Severity Reaction Status Date / Time meloxicam AdvReac Intermediate Hives Verified 07/08/23 15:02 General Stated Complaint: RespSymp NISHANT: 3 PFSH All Active Problems (Updated 07/20/23 @ 15:25 by Pj Carty MD) Viral URI (Acute) COVID-19 (Acute) COVID-19 (Acute) Tendonitis of left rotator cuff (Acute) Biceps tendinitis of left shoulder (Acute) Subacromial impingement of left shoulder (Acute) Bursitis of left shoulder (Acute) Left shoulder pain (Acute) Plantar fasciitis of right foot (Acute) Plantar fasciitis of left foot (Acute) Acute lumbar back pain (Acute) >50% of 40 min visit spent providing [id number] counseling. Pre-diabetes (Chronic) PCOS (polycystic ovarian syndrome) (Acute 12/09/14) on glucophage 850mg BID Migraine headache without aura (Acute 12/09/14) Takes ibuprofen, and then Maxalt prn Hypertension (Acute 12/09/14) on methyldopa 500mg BID Complex endometrial hyperplasia (Acute 12/09/14) Hemorrhoids (Acute 08/14/17) Carpal tunnel syndrome of right wrist (Acute 12/24/16) Medical History (Updated 07/20/23 @ 15:25 by Pj Carty MD) Essential hypertension Gastroesophageal reflux disease Polycystic ovaries Surgical History Cholecystectomy Diagnostic Laproscopy Hysteroscopy Family History Mother No problems noted. Father No problems noted. Sister No problems noted. Sister No problems noted. 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 What is your relationship status?: How often do you talk on the phone with friends or family?: once per week How often do you get together with friends or relatives?: once per week Panel score (0-1 are the most socially isolated patients): 1 What type of physical activity do you participate in: regular exercise and other Details: work-lifting, up and down stairs Duration: 60-90 minutes/day Frequency: 5-6 times per week Seatbelt use: always Drive intox or ride w/intox lift driver: Yes Working smoke detector in home: Yes Fire extinguisher in home: Yes Carbon monox detector in home: Yes Do you feel safe at home: Yes Do you feel safe in your relationship?: Yes Victim of physical abuse: No Victim of emotional abuse: No Victim of sexual abuse: No Course Vital Signs Vital signs: Vital Signs Pulse 95 H 07/20/23 10:46 Respiratory Rate 20 07/20/23 10:46 Blood Pressure 170/140 H 07/20/23 10:46 Pulse Oximetry 98 07/20/23 10:46 Pulse 95 H 07/20/23 10:46 Respiratory Rate 20 07/20/23 10:46 Blood Pressure 170/140 H 07/20/23 10:46 Pulse Oximetry 98 07/20/23 10:46
[2023-07-20 10:58] VITALS: TEMP 37.1
[2023-07-20] MEDS: Acetaminophen 500 MG TAB 1000 MG PO (11:24)
[2023-07-20] MEDS: Ondansetron O.D.T. 4 MG TABEF PO (11:24)
[2023-07-20 11:46] LABS: Influenza A PCR Negative (Negative); Influenza B PCR Negative (Negative); RSV PCR Negative (Negative)
[2023-07-20 11:49] LABS: COVID-19 PCR Positive (Negative); Source Nasopharynx
== END 2023-07-20 11:27 | disposition home or self-care (01) ==
PROVIDERS: Emergency Provider Emergency Medicine; PCP Nurse Practitioner
DX: U07.1 COVID-19; J06.9 Acute upper respiratory infection, unspecified; I10 Essential (primary) hypertension; Z79.899 Other long term (current) drug therapy; R73.03 Prediabetes
CPT/HCPCS: 87637; 99283

== ENCOUNTER → 2023-12-18 04:33 | Outpatient (CLI) | payer BC, SELFPAY ==
--- NOTE | 2023-12-18 07:15 | DI.MAMMO_ITS ---
Exam(s) MAMMO SCREENING EXAM: MAMMO SCREENING CLINICAL HISTORY: screening,z12.39 TECHNIQUE: Mammograms were interpreted according to the usual protocol including computer analysis w [employer] CAD system, tomosynthesis and C-view imaging. COMPARISON: 2015 through 2021 FINDINGS: The breasts are composed of mainly fatty density , Breast Density category A. No suspicious masses or suspicious microcalcifications are seen. No skin thickening or abnormal axillary lymph nodes are seen. There has been no significant change from prior exams. IMPRESSION: BI-RADS Category 1, Negative mammogram Yearly screening mammography is recommended. Breast Density - Category A, fatty density. A negative radiographic report should not delay biopsy if a dominant or clinically suspicious mass is present. Up to ten percent of cancers are not identified on mammography. A negative report may reinforce clinical impression. Adenosis and dense breasts may obscure an underlying neoplasm. False positive reports average 6 to 10%. Patient will receive a letter notifying them of these results.
== END ==
PROVIDERS: PCP Nurse Practitioner; Visit Provider Nurse Practitioner
DX: Z12.31 Encounter for screening mammogram for malignant neoplasm of breast (principal)
CPT/HCPCS: 77063; 77067

== ENCOUNTER 2023-12-18 05:26 | Outpatient (CLI) | payer BC, SELFPAY ==
[2023-12-18 08:31] LABS: ALT 30 U/L (14-59); AST 26 U/L (15-37); Alkaline Phosphatase 66 U/L (46-116); Anion Gap 11.8 mmol/L (3-11); BUN 25 mg/dL (7-18); Bilirubin, Total 0.7 mg/dL (0.2-1.0); CO2 24.2 mmol/L (21.0-32.0); CREATININE 1.1 mg/dL (0.55-1.02); Calcium 9.9 mg/dL (8.5-10.1); Calculated LDL 92 mg/dL (<100); Chloride 107 mmol/L (98-107); Cholesterol 171 mg/dL (<200); Glucose 104 mg/dL (74-106); HDL Cholesterol 71 mg/dL (40-60); Potassium 4.2 mmol/L (3.5-5.1); Sodium 143 mmol/L (136-145); Total Protein 8.4 g/dL (6.4-8.2); Triglyceride 42 mg/dL (<150)
== END 2023-12-18 05:27 | disposition home or self-care (01) ==
LOC: LBO 05:26
PROVIDERS: PCP Nurse Practitioner; Referring Provider Nurse Practitioner; Visit Provider Nurse Practitioner
DX: Z13.220 Encounter for screening for lipoid disorders (principal); R73.03 Prediabetes
CPT/HCPCS: 36415; 80053; 80061

== ENCOUNTER 2023-12-24 05:11 | Outpatient (CLI) | payer BC, SELFPAY ==
--- NOTE | 2023-12-25 10:54 | TELEFU_ITS ---
Date of service: 12/24/23 Time of Service: 12:00 Nutrition Note NOTE: Nichole in with Bill (partner/fiance) for discussing glucose mgt and weight. Pre- diabetes for the last 5 years at least with a hx of PCOS, HTN, reflux. Onozempic with good results over the past 2 weeks on it - lost 7# x last week per Nichole. Works a~2am to 1pm shift at work which makes sleeping and meal planning difficult. We discussed by going over carb sources and 15g serving=1carb serving. We reviewed noncarb sources and highlighted protein sources she will need to spread throughout the day as well for best use of protein in the body. REcommended ~40% of kcals come from carbs (~180 grams on 1800kcal diet) and reviewed this as 10-12 carb servings per day. We looked at keeping menu planning simple and repetitive to avoid over-stressing about what to eat. I suggested mapping out the meal times and snack times for a typical day and suggested aiming for 3 larger meals and 1-2 decent snacks that focus on protein and fiber, trying to get 2-3 carb choices at meals and 1 at snacks. Reviewed quality of starch and sugar carbs are important and aiming for whole grain choices and minimally processed foods is important. Reviewed added sugars in foods and limiting this to <30g per day most days. I suggested some products and recipe prepping that might help - hardboiling eggs and peeling and keeping in fridge for on the go times or making egg salad or sliced in a green salad, making no bake protein bites, using precut/bagged veggies like carrots, celery, peapods and cutting up others like cukes and darling peppers. gave her my card to email/call should she want follow up or any help with menu planning Time Spent in Nutritional Counseling and Treatment: 45 minutes
== END 2023-12-24 05:12 | disposition home or self-care (01) ==
LOC: DS 05:12
PROVIDERS: PCP Nurse Practitioner; Visit Provider Dietitian, Registered
DX: R73.03 Prediabetes (principal); I10 Essential (primary) hypertension; E66.8 Other obesity; Z71.3 Dietary counseling and surveillance
CPT/HCPCS: 00123; 97802

== ENCOUNTER 2024-06-18 07:59 | Day surgery (SDC) | payer BC, SELFPAY ==
--- NOTE | 2024-06-17 15:34 | W.COLOREPORT ---
Date of service: 06/18/24 Time of Service: 10:43 Colonoscopy Report Date of procedure: 06/18/24 Pre-op diagnosis general: CRC screening Surgeon: Melba Geronimo Anesthesia Type: General:No Airway Complications: None Disposition: same day Prep: Miralax/Dulcolax Procedure Description: After informed consent was obtained, explaining risks of the procedure, including but not limits to: bleeding, infections, complications of anesthesia, perforations (which may require antibiotics and /or surgery and stay in the hospital), and abdominal pain/cramping. The patient was taken to the procedure room and placed in a left decubitous position. Monitors were applied and a time out was done. The patients name, date of , procedure, allergies to medications and metal in their body was reviewed. The patient was then sedated. Once sedated and comfortable a rectal exam was done. External exam -external hemorrhoids with no thrombosis or inflammation minor. Internal exam revealed a normal sphincter tone and no palpable masses. The previously lubricated Olympus scope was then introduced (see RN notes for scope number) and retrofelexed. Grade 2 x 1 column internal hemorrhoids and a hemorrhoidal tag were identified. The scope was then advanced to the cecum without difficulty. The TI and appendiceal orifice were identified. The scope was then slowly retracted over minutes back into the rectum. Polyps: A flat, .5cm polyp was found at rectum. This was removed with a cold biting forceps. All of the specimen was retrieved. This will be sent to pathology. There is no bleeding noted from the polypectomy site. Diverticula: no. The mucosa is pink and healthy w/ a normal vascular pattern. The scope was removed, and the patient was woken up and taken back to Same day surgery in stable condition. The patient tolerated the procedure well and there were no immediate complications. Follow up: The patient should follow up in 7-10 years, unless they develop changes in bowel habits or other new gastrointestinal complaints. Mathis Bowel Prep Mathis Bowel Prep Right Colon: 3 Left Colon: 2 Transverse Colon: 3 Total Score: 8
--- NOTE | 2024-06-17 15:54 | W.PM.DSUDISC ---
Date of service: 06/18/24 Time of Service: 10:10 Discharge Plan Disposition Patient Disposition: Home Condition: Good Discharge Details Reason For Visit: Colon scope Attending Provider: Melba Geronimo Primary Care Provider: Rachel Vail Home Meds and New Rx's Prescriptions: Continued semaglutide 2 mg/dose (8 mg/3 mL) pen injector 2 mg subcut QWEEK Qty: 3 5RF albuterol sulfate 90 mcg/actuation HFA aerosol inhaler 2 puff IH QID PRN (Reason: shortness of breath or wheezing) Qty: 18 12RF Rx Instructions: Dispense brand best covered under insurance multivitamin tablet 1 tab PO DAILY lisinopril 10 mg tablet See Rx Instructions .ROUTE .COMPLEX Qty: 90 3RF Dose Instruction: TAKE 1 TABLET BY MOUTH DAILY Rx Instructions: TAKE 1 TABLET BY MOUTH DAILY Discontinued bisacodyl 5 mg tablet,delayed release (DR/EC) 5 mg PO ONCE Qty: 4 0RF Rx Instructions: Per Colonoscopy bowel prep instructions polyethylene glycol 3350 17 gram/dose powder 238 g PO ONCE Qty: 238 0RF Rx Instructions: For Colonoscopy bowel prep, as directed by office Discharge Instructions Additional Instructions: DSU Colonoscopy Post-Op Instructions Instructions for Everyone who is given Anesthesia: For your safety, please do the following for the next twenty-four (24) hours: *Do Not operate a motor vehicle (car, truck, motorcycle, etc.) *Do Not drink alcoholic beverages or use any recreational drugs for the first 24 hours or while taking pain medications. The medications in your body may have a reaction that can be dangerous. *Do Not make any important decisions or sign any important papers. Findings: Internal and external hemorrhoids-small. Would not recommend surgery Small polyps Follow up: My office will send you a letter in 2 to 3 weeks time with the results of the polyps and when we want you to repeat the colonoscopy, most likely in 7 to 10 years time. 1. No lifting over 20 pounds or strenuous activity for the first 24 hours after your procedure. After 24 hours there are no restrictions on your activity but you may feel fatigued for a few days. 2. After you arrive home you may have a light meal and return to your normal diet as you can tolerate it without feeling sick to your stomach. 3. You may have a bloated, gaseous feeling in your belly (abdomen) after a colonoscopy. Passing gas and belching will help. Walking or lying down on your left side with your knees flexed may relieve the discomfort. Call the office at [phone] (Office) or [phone] (Hospital) right away if you notice any of the following: a.Vomiting of blood or ?coffee ground stools?. b.Rectal bleeding 1Tbsp, blood clots or continuous bleeding. c.Severe belly (abdominal) pain. d.A hard distended belly (abdomen) and an inability to pass gas. 4. Please don?t expect to have a normal BM (bowel movement) for 2-3 days after your procedure. 5. If there are questions regarding the findings of your procedure, please contact your doctor 6. If you are unable to contact your doctor with a problem, contact the hospital at [phone]. 7. Continue all your regular medications unless directed otherwise. I understand the above instructions and have no questions. Signature of Patient or Adult Escort Name of Responsible Adult Escort Signature of Nurse Date/Time Stand Alone Forms: Anesthesia Discharge , Rasheed Sharma (CELESTEU) Activity:: see above Diet:: see above Discharge Orders Discharge Orders: Discharge Order (Routine); Ordered 06/18/24 Ordered By: Melba Geronimo DS: Diagnosis Discharge Diagnosis (1) Screening for malignant neoplasm of colon performed: Status: Acute Asessment and Plan: The patient is seen and examined after their colonoscopy.? The patient has been able to pass gas.? They are not having abdominal pain.? They have been able to tolerate liquids and a snack.? They do not have any nausea or vomiting.? They are not having any chest pain or shortness of breath.??? They are not having any rectal bleeding. Their vital signs have been stable-see nursing notes. We discussed findings during their colonoscopy, and any biopsies that were done/polyps that were removed. The patient will be sent a letter with any biopsy results, and when to repeat the colonoscopy.-see discharge instructions. Patient was given explicit instructions to follow-up regarding colonoscopy-refer to discharge instructions.? We reviewed resumption of medications. Patient verbalized understanding and discharged in stable and satisfactory condition- See nursing notes. (2) Hypertension: Status: Acute (3) Pre-diabetes: Status: Chronic (4) PCOS (polycystic ovarian syndrome): Status: Acute (5) Hemorrhoids: Status: Acute (6) Complex endometrial hyperplasia: Status: Acute
[2024-06-18 08:18] VITALS: BP 142/97; PULSE 63; RESP 18; TEMP 36.6; O2SAT 98
--- NOTE | 2024-06-18 08:44 | W.ANESPRE ---
General Info Date of Service Date Performed: 06/18/24 Height: 5 ft 3 in Weight: 67.4 kg Body Mass Index (BMI): 26.3 Surgical Procedure: Operation Date: 06/18/24 09:05 Proposed Procedure Side Surgeon abraham Geronimo, Meds Allergies and Home Medications Allergies Allergy/AdvReac Type Severity Reaction Status Date / Time meloxicam AdvReac Intermediate Hives Verified 06/18/24 08:34 Home Medication ?Medication ?Instructions ?Recorded multivitamin 1 tab PO DAILY 03/19/19 lisinopril 10 mg tablet See Rx Instructions .Route 11/20/23 .COMPLEX #90 tabs albuterol sulfate 90 mcg/actuation 2 puff inhalation QID PRN 03/09/24 aerosol inhaler shortness of breath or wheezing #18 grams semaglutide 2 mg/dose (8 mg/3 mL) 2 mg (0.75 mL) subcut QWEEK #3 mL 03/09/24 subcutaneous pen injector bisacodyl 5 mg tablet,delayed 5 mg PO ONCE Colonoscopy Bowel 06/03/24 release Prep #4 tabs polyethylene glycol 3350 17 238 g PO ONCE #238 grams 06/03/24 gram/dose oral powder Current Visit Medications: Current Medications Generic Name Dose Route Start Last Admin Trade Name Freq PRN Reason Stop Dose Admin Hyoscyamine Sulfate 0.125 mg 06/18/24 03:18 Hyoscyamine 0.125 Mg Sl/Oral/Chew SL 07/18/24 03:17 DIRECTED PRN Ringer's Solution 1,000 mls @ 80 mls/hr 06/18/24 06:00 IV 06/18/24 23:59 INFUSION [facility] IV Miscellaneous Supplies 1 each 06/18/24 06:00 Iv Access IV 06/18/24 23:59 DIRECTED [place] Ondansetron HCl 4 mg 06/18/24 03:18 Ondansetron 4 Mg/2 Ml Vial IVP 07/18/24 03:17 Q4H PRN PRN Nausea / Vomiting Sodium Chloride 0 ml 06/18/24 06:00 Normal Saline Flush 10 Ml Syr IV 06/18/24 23:59 PRN PRN Sodium Chloride 0 ml 06/18/24 06:00 Normal Saline 10 Ml Vial IJ 06/18/24 23:59 DIRECTED PRN Sterile Water 0 ml 06/18/24 06:00 Water,Injection,Sterile 10 Ml Vial IJ 06/18/24 23:59 DIRECTED PRN PFSH Active Problems Active Problems: Problem Status Onset Code Screening for malignant neoplasm of colon performed Acute Z12.11 COVID-19 Acute U07.1 COVID-19 Acute U07.1 Tendonitis of left rotator cuff Acute M75.82 Biceps tendinitis of left shoulder Acute M75.22 Subacromial impingement of left shoulder Acute M75.42 Bursitis of left shoulder Acute M75.52 Left shoulder pain Acute M25.512 Plantar fasciitis of right foot Acute M72.2 Plantar fasciitis of left foot Acute M72.2 Acute lumbar back pain Acute M54.5 Pre-diabetes Chronic R73.03 PCOS (polycystic ovarian syndrome) Acute 12/09/14 E28.2 Migraine headache without aura Acute 12/09/14 G43.009 Hypertension Acute 12/09/14 I10 Complex endometrial hyperplasia Acute 12/09/14 N85.01 Hemorrhoids Acute 08/14/17 K64.9 Carpal tunnel syndrome of right wrist Acute 12/24/16 G56.01 Medical History Medical History Obesity Gastroesophageal reflux disease Polycystic ovaries Essential hypertension Surgical History Surgical History Hysteroscopy Diagnostic Laproscopy Cholecystectomy Tobacco Smoking/Tobacco Use Status: Never Alcohol Alcohol Intake: current Alcohol intake frequency: holidays/special occasions only Substance Use Substance use: Never Substance use type: does not use Vital Signs and Lab Results Vital Signs Most Recent Vital Signs in EMR: Most Recent Vital Signs Temp Pulse Resp BP Pulse Ox 36.6 C 63 18 142/97 H 98 06/18/24 08:18 06/18/24 08:18 06/18/24 08:18 06/18/24 08:18 06/18/24 08:18 Point of Care Results Point of Care Results: POC- Test(urine) Negative 06/18/24 08:32 Lab Results Blood Type / Crossmatch: No Data to Display Complete Blood Count: No Data to Display Complete Metabolic Panel: No Data to Display Liver Function Panel: No Data to Display Coagulation Panel: No Data to Display Cardiac Panel: No Data to Display Arterial Blood Gas: No Data to Display Venous Blood Gas: No Data to Display Pancreas Panel: No Data to Display Thyroid Panel: No Data to Display Infectious Disease: No Data to Display Blood Cultures: No Data to Display Toxicology Panel: No Data to Display Panel: No Data to Display Anesthesia Assessment and Plan Anesthesia History Personal History: PONV Family History: No Family History of Anesthesia Complications Exercise Tolerance Exercise Tolerance: Metabolic Equivalents>4 Pertinent Negatives Pertinent Negatives: No Symptoms of GERD, No Major Cardiovascular Symptoms or Complaints and No Major Pulmonary Symptoms or Complaints (rare inhaler use with URI) Cardiac & Pulmonary Exam Cardiac Exam: Normal S1/S2 Heart Sounds Pulmonary Exam: Clear Bilateral Breath Sounds Implantable Cardiac Device Does patient have a Pacemaker or an ICD?: No Airway Exam Known Difficult Airway: No Mallampati Class: 2 Mouth Opening: Normal (> 3cm) Thyromental Distance: Greater than 3 cm Neck Range of Motion: Full ROM Neck Circumference: Normal Teeth Condition: Normal Dentition (bottom left crown missing) ASA Classification ASA Score: ASA 2 Emergency Case?: No NPO Status NPO Status: NPO Clears >2 hours, Solids >8 hours Status Status: Negative HCG Anesthesia Plan Resuscitation Status: Full Code Anesthesia Technique: General Anesthesia Airway Planned: Natural Airway Monitors Used: Standard Monitors Preoperative Comments:: 49 y/o female with history of migraines, HTN, pre diabetes, PCOS and hemorrhoids presents for colonoscopy screening
[2024-06-18] MEDS: Lactated Ringers 1,000 ML 80 ML IV (09:05)
[2024-06-18 09:31] VITALS: BMI 26.3
--- NOTE | 2024-06-18 09:57 | BOWEL_PTH ---
PATIENT: Nichole Pagan LOC: [facility] U#:[id number] AGE/SX: 49/F ROOM: RE06/18/[address]: Melba Geronimo : 1975 BED: DIS: 06/18/2024 SPEC #: [id number] RECD: 06/18/24 12:59 STATUS: WENDY REQ #: [id number] JESÚS: 06/18/24 09:[address]: Melba Geronimo DEPT: Surgical Specimen RECD BY: Claire Pardo ENTERED: 06/18/24 12:59 SP TYPE: Bowel OTHR DR: Rachel Vail APRN Tissues: 1 - BIOPSY BOWEL Procedures: GROSS AND MICRO LEVEL 4 Comments: [id number]
[2024-06-18 10:02] VITALS: BP 102/70; PULSE 75; RESP 16; TEMP 36.5; O2SAT 95
[2024-06-18 10:32] VITALS: BP 123/86; PULSE 63; RESP 18; TEMP 36.7; O2SAT 95
--- NOTE | 2024-06-18 10:57 | W.ANESPOSTOP ---
Postoperative Evaluation Date, Time and Location Date Performed: 06/18/24 Time Performed: 10:41 Patient Location: Day Surgery Unit Vital Signs Most Recent Imported Vital Signs: Most Recent Vital Signs Temp Pulse Resp BP Pulse Ox 36.7 C 63 18 123/86 95 06/18/24 10:32 06/18/24 10:32 06/18/24 10:32 06/18/24 10:32 06/18/24 10:32 Pain Score Most Recent Pain Score: Most Recent Pain Score Pain Level 0 06/18/24 10:32 Assessment Mental Status: Awake (Alert & Oriented to Patient Baseline) Airway and Respiratory Function: Patent airway with normal (patient baseline) respiratory exam Cardiovascular Function: Hemodynamically Stable Hydration Status: Adequately Hydrated Nausea & Vomiting: No Nausea or Vomiting Pain: Pt. Denies Any Pain Peripheral Nerve Block: Patient did not receive a nerve block
== END 2024-06-18 10:55 | disposition home or self-care (01) ==
PROVIDERS: PCP Nurse Practitioner; Visit Provider Surgery
PROC: 0DJD8ZZ Inspection of Lower Intestinal Tract, Via Natural or Artificial Opening Endoscopic (ICD-10-PCS; CPT 45378; principal; 2024-06-18 09:00)
DX: Z12.11 Encounter for screening for malignant neoplasm of colon (principal); I10 Essential (primary) hypertension; K64.8 Other hemorrhoids; K64.0 First degree hemorrhoids; K62.1 Rectal polyp
CPT/HCPCS: 45380; 81025; 88305; J2405; J2704

== ENCOUNTER 2024-07-16 02:49 | Outpatient (CLI) | payer BC, SELFPAY ==
[2024-07-16 13:15] LABS: Abs Immature Grans 0.01 10^3/uL (0.0-0.06); Absolute Eosinophil Count 0.22 10^3/uL (0.0-0.7); Absolute Lymphocyte Count 2.69 10^3/uL (1.2-3.4); Absolute Monocyte Count 0.63 10^3/uL (0.1-0.8); Absolute Neutrophil Count 4.27 10^3/uL (1.2-6.7); Basophils % 1.3 %; Eosinophils % 2.8 %; HCT 41.5 % (36.0-46.0); HGB 13.6 g/dL (11.2-15.7); Immature Grans % 0.1 %; MCH 29.8 pg (27.0-33.0); MCHC 32.8 % (32.0-36.0); MCV 91 fL (80-95); MPV 9.5 fL (8.0-11.0); Neutrophils % 53.8 %; Platelet Count 243 10^3/uL (130-400); RBC 4.57 10^6/uL (3.93-5.22); RDW 12.7 % (11.7-14.6); RDW-SD 42.2 fL; WBC 7.92 10^3/uL (4.4-10.8)
[2024-07-16 13:25] LABS: PTT Activated 25.6 sec (23.6-32.8); Prothrombin Time 9.7 sec (9.1-11.1)
[2024-07-16 14:00] LABS: Iron 66 ug/dL (50-170)
[2024-07-16 14:08] LABS: ALT 23 U/L (14-59); AST 18 U/L (15-37); Albumin 3.5 g/dL (3.4-5.0); Alkaline Phosphatase 78 U/L (46-116); Anion Gap 5.1 mmol/L (3-11); BUN 13 mg/dL (7-18); Bilirubin, Direct 0.1 mg/dL (0.0-0.2); Bilirubin, Total 0.51 mg/dL (0.2-1.0); CO2 29.9 mmol/L (21.0-32.0); Calcium 9.3 mg/dL (8.5-10.1); Chloride 105 mmol/L (98-107); Estimated GFR 68.63 (mL/min/1.73m2); Ferritin 70 ng/mL (8-252); Glucose 85 mg/dL (74-106); Potassium 3.7 mmol/L (3.5-5.1); Sodium 140 mmol/L (136-145); Total Protein 7.7 g/dL (6.4-8.2); Vitamin B12 692 pg/mL (193-986)
== END 2024-07-16 02:50 | disposition home or self-care (01) ==
LOC: LBO 02:49
PROVIDERS: PCP Nurse Practitioner; Referring Provider Nurse Practitioner; Visit Provider Nurse Practitioner
DX: T14.8XXA Other injury of unspecified body region, initial encounter (principal); R53.83 Other fatigue; J45.909 Unspecified asthma, uncomplicated
CPT/HCPCS: 36415; 80048; 80076; 82607; 82728; 83540; 85025; 85610; 85730

== ENCOUNTER 2024-10-07 01:21 | Outpatient (CLI) | payer BC, SELFPAY ==
--- NOTE | 2024-10-07 07:45 | DI.RAD_ITS ---
Exam(s) XR FOOT LT COMPLETE EXAM: XR FOOT LT COMPLETE CLINICAL HISTORY: Left foot pain,M79.672. TECHNIQUE: 2D digital imaging was performed of the left foot. Three images were obtained. AP, obli que and lateral views were obtained. COMPARISON: No exams were available for comparison FINDINGS: BONES: No acute fracture is present. No bony destructive lesion is seen. There is a small enthesophyt e at the posterior calcaneus. There is a large plantar calcaneal spur. JOINTS: No dislocation present. There are mild arthritic changes seen at the articulation of the late ral sesamoid with the head of the 1st metatarsal bone. There is a hallux valgus deformity. SOFT TISSUE: Normal. IMPRESSION: 1. Calcaneal spurs. 2. Hallux valgus deformity. DATA REPOSITORY: RADIATION DOSE DELIVERED:
--- NOTE | 2024-10-07 07:45 | DI.RAD_ITS ---
Exam(s) XR FOOT RT COMPLETE EXAM: XR FOOT RT COMPLETE CLINICAL HISTORY: Right foot pain,M79.672. TECHNIQUE: 2D digital imaging was performed of the right foot. Three images were obtained. AP, obl ique and lateral views were obtained. COMPARISON: No exams were available for comparison FINDINGS: BONES: No acute fracture is present. No bony destructive lesion is seen. There is a small enthesophyt e at the posterior calcaneus. There is a moderate size plantar calcaneal spur. There is an accessor y ossicle seen at the dorsal aspect of the talonavicular joint. JOINTS: No dislocation present. There is mild hallux valgus deformity. SOFT TISSUE: Normal. IMPRESSION: Calcaneal spurs. DATA REPOSITORY: RADIATION DOSE DELIVERED:
== END 2024-10-07 01:41 ==
LOC: DI 01:21
PROVIDERS: PCP Nurse Practitioner; Visit Provider Podiatrist
DX: M77.32 Calcaneal spur, left foot (principal); M77.31 Calcaneal spur, right foot
CPT/HCPCS: 73630

== ENCOUNTER 2025-01-26 00:52 | Outpatient (CLI) | payer BC, SELFPAY ==
--- NOTE | 2025-01-26 07:15 | DI.MAMMO_ITS ---
Exam(s) MAMMO SCREENING EXAM: MAMMO SCREENING CLINICAL HISTORY: screening,z12.39 TECHNIQUE: Bilateral full field digital CC and MLO mammographic images were obtained with 3D tomosyn thesis and utilizing computer aided detection (CAD). COMPARISON: Available for comparison. FINDINGS: Masses/Architectural Distortion: No suspicious masses or areas of architectural distortion are presen t. Microcalcifications: No suspicious pleomorphic-type are seen. Skin Thickening/Nipple Retraction: None. IMPRESSION: 1. No significant interval change with no specific features of malignancy noted. 2. Unless there is more urgent need, screening mammography is recommended, as per [employer] guidelines. BI-RADS Category 1 - Negative Breast Density - Category B - Scattered areas of fibroglandular density Breast density category C or D implies that the patient has dense breast tissue. Dense breast tissue is very common and is not abnormal but dense breast tissue can make it harder to find cancer on a ma mmogram. Also, dense breast tissue may increase their breast cancer risk. This information about the result of the mammogram report was provided to the patient to raise their awareness. Use this report when you speak with the patient about their risks for breast cancer, which includes their family hist ory. At that time, you may recommend for more screening tests (Ultrasound or MRI) as they might be us eful based on their risk. A negative radiographic report should not delay biopsy if a dominant or clinically suspicious mass is present. Up to ten percent of cancers are not identified on mammography. A negative report may reinforce clinical impression. Adenosis and dense breasts may obscure an underlying neoplasm. False positive reports average 6 to 10%. Patient will receive a letter notifying them of these results.
== END 2025-01-26 01:12 ==
LOC: DI 00:52
PROVIDERS: PCP Nurse Practitioner; Visit Provider Nurse Practitioner
DX: Z12.31 Encounter for screening mammogram for malignant neoplasm of breast (principal); R92.323 Mammographic fibroglandular density, bilateral breasts
CPT/HCPCS: 77063; 77067